=== PATIENT | male | born 1965 | race Caucasian/White ===

== ENCOUNTER 2016-11-15 21:20 | Emergency (ER) | payer OTHER ==
[2016-11-15 21:39] VITALS: BP 136/78
[2016-11-15] MEDS ORDERED: Morphine INJ* 4 MG/ML 1 ML SYRINGE IM ONE (22:17)
[2016-11-15] MEDS ORDERED: Tetan/Diph/Pertus SYR(Tdap)* 0.5 ML SYR(BOOSTRIX) use SYR IM ONE (22:33)
[2016-11-15] MEDS ORDERED: oxyCODONE/Acetamin 5/325 MG* TAB PO ONE (22:33)
[2016-11-15] MEDS ORDERED: Bacitracin OINTMENT* 1 TUBE TOPICAL ONE (22:33)
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
== END 2016-11-15 23:07 | disposition home or self-care (01) ==
LOC: ED 21:20
DX: T23.261A Burn of second degree of back of right hand, initial encounter (principal); T23.162A Burn of first degree of back of left hand, initial encounter; X08.8XXA Exposure to other specified smoke, fire and flames, initial encounter; Y93.G2 Activity, grilling and smoking food; Y92.9 Unspecified place or not applicable; Z23 Encounter for immunization
CPT/HCPCS: 90471; 90715; 96372; 99282; A9270-GY; J2270